=== PATIENT | female | born 1965 | race Caucasian/White ===

== ENCOUNTER 2018-07-15 02:19 | Outpatient (CLI) | payer BC, SELFPAY ==
[2018-07-15 07:40] LABS: HCT 41.9 % (36.0-46.0); HGB 13.8 g/dL (12.0-15.5); Mean Corp. HGB Concentration 32.9 g/dL (32.0-36.0); Mean Corpuscular Hemoglobin 32.6 pg (27.0-33.0); Mean Corpuscular Volume 99.1 fL (80-95); Mean Platelet Volume 9.7 fL (8.0-11.0); Platelet Count 250 x1000/uL (130-400); RBC 4.23 m/cumm (4.00-5.20); RBC Distribution Width 13.5 % (11.7-14.6); White Blood Cell Count 4.88 k/cumm (4.4-10.8)
[2018-07-15 08:00] LABS: Iron 111 ug/dL (50-175); Total Iron Binding Capacity 300 ug/dL (250-450); Transferrin Sat 37 % (15-50)
[2018-07-15 08:27] LABS: ALT 26 U/L (12-78); AST 18 U/L (15-37); Albumin 3.7 g/dL (3.4-5.0); Alkaline Phosphatase 75 U/L (46-116); Anion Gap 8.6 mmol/L (3-11); BUN 21 mg/dL (7-18); Bilirubin, Total 0.4 mg/dL (0.2-1.0); CO2 28.4 mmol/L (21.0-32.0); CREATININE 0.93 mg/dL (0.55-1.02); Calcium 8.8 mg/dL (8.5-10.1); Chloride 107 mmol/L (98-107); Ferritin 145 ng/mL (8-388); Glucose 85 mg/dL (70-100); Potassium 4.4 mmol/L (3.5-5.1); Sodium 144 mmol/L (136-145); TSH (W/Ref FT4) 2.84 uIU/mL (0.358-3.74); Total Protein 6.6 g/dL (6.4-8.2)
== END 2018-07-15 02:20 ==
PROVIDERS: PCP Emergency Medicine
DX: D64.9 Anemia, unspecified (principal); R53.83 Other fatigue
CPT/HCPCS: 36415; 80053; 85027; 82728; 83540; 83550; 84443

== ENCOUNTER 2018-07-28 16:47 | Outpatient (REF) | payer BC, SELFPAY ==
[2018-07-30 11:44] LABS: Campylobacter PCR SEE COMMENTS; Salmonella PCR SEE COMMENTS; Shiga Toxin PCR SEE COMMENTS; Shigella/Enteroinvasive Ecoli SEE COMMENTS
== END 2018-07-28 17:07 ==
LOC: LBN 16:47
PROVIDERS: PCP Emergency Medicine
DX: K59.00 Constipation, unspecified (principal); R19.7 Diarrhea, unspecified
CPT/HCPCS: 87329; 87505; 83630; 87177

== ENCOUNTER 2018-10-18 09:21 | Outpatient (CLI) | payer BC, SELFPAY ==
[2018-10-18 10:25] LABS: ESR 7 MM/HR (0-30)
[2018-10-18 11:09] LABS: C-Reactive Protein 0.05 mg/dL (0.0-0.3); Creatine Kinase 70 U/L (26-192)
[2018-10-18 11:30] LABS: Vitamin D 25 Total 41.6 ng/ml (30-100)
[2018-10-19 11:58] LABS: Rheumatoid Factor <8 IU/mL (<12.5)
[2018-10-19 14:52] LABS: ANA Interpretation Negative (NEGAT)
== END 2018-10-18 09:41 ==
PROVIDERS: PCP Emergency Medicine; Visit Provider Psychiatry & Neurology Neurology
DX: M25.50 Pain in unspecified joint (principal)
CPT/HCPCS: 36415; 82306; 82550; 85652; 86038; 86140; 86431

== ENCOUNTER 2018-10-25 01:09 | Outpatient (CLI) | payer BC, SELFPAY ==
--- NOTE | 2018-10-25 07:47 | DI.MRI_ITS ---
SYMPTOM/DIAGNOSIS: CHRONIC FATIGUE, ? MS G35.0 MRI BRAIN: Comparison is made with 19 Mar 2011. T2 sagittal, T1, T2, Flair, diffusion and gradient echo axial as well as flair sagittal sequences were performed. There are again noted to be a few scattered high signal foci in the white matter which is not in a periventricular location. The findings are nonspecific and may reflect microvascular disease. There has been no significant change from the previous exam. No mass, hemorrhage, or infarct is seen. The ventricles are normal in size. The vascular flow voids appear intact. The sinuses and mastoid air cells appear clear. The orbits and pituitary are unremarkable as visualized. IMPRESSION: Stable scattered white matter foci likely reflecting small vessel disease. There are no specific features of multiple sclerosis.
== END 2018-10-25 01:29 ==
PROVIDERS: PCP Emergency Medicine; Visit Provider Psychiatry & Neurology Neurology
DX: R53.82 Chronic fatigue, unspecified (principal); R90.82 White matter disease, unspecified
CPT/HCPCS: 70551

== ENCOUNTER 2019-02-03 12:23 | Outpatient (REF) | payer BC, SELFPAY ==
--- NOTE | 2019-02-03 10:30 | PAPFT_PTH ---
PATIENT: Negrita Cope LOC: [facility] U#:[id number] AGE/SX: 54/F ROOM: RE02/03/[address]: Brunilda Lainez APRN : 1965 BED: DIS: 02/03/2019 SPEC #: [id number] RECD: 02/03/19 18:11 STATUS: PAIGE REQ #: [id number] AIME: 02/03/19 10:[address]: Brunilda Lainez DEPT: [facility] Cytology RECD BY: Larissa Vásquez ENTERED: 02/03/19 18:12 SP TYPE: PAPFT OTHR DR: Lb Perez DO Tissues: 1 - CX/ENDOCX FOR PAP SMEARS Procedures: PAP THIN PREP/[facility] Screening HPV DNA PROBE Comments: [id number]
== END 2019-02-03 12:43 ==
LOC: LBN 12:23
PROVIDERS: PCP Emergency Medicine
DX: Z12.4 Encounter for screening for malignant neoplasm of cervix (principal); Z11.51 Encounter for screening for human papillomavirus (HPV)
CPT/HCPCS: 88142; 87624

== ENCOUNTER 2019-09-16 00:33 | Outpatient (CLI) | payer BC, SELFPAY ==
--- NOTE | 2019-09-16 13:00 | DI.MAMMO_ITS ---
EXAM: MG MAMMO SCREENING MG MAMMO SCREENING CLINICAL HISTORY: screening screening TECHNIQUE: Mammograms were interpreted according to the usual protocol including computer analysis w ith CAD system, tomosynthesis and C-view imaging. COMPARISON: 2009 through 2016 FINDINGS: The breasts are composed of scattered fibroglandular densities, Breast Density category B. No suspicious masses or suspicious microcalcifications are seen. No skin thickening or abnormal axillary lymph nodes are seen. There has been no significant change from prior exams. IMPRESSION: BIRADS Category 1, negative mammogram. Yearly screening mammography is recommended.
== END 2019-09-16 00:53 ==
PROVIDERS: PCP Emergency Medicine
DX: Z12.31 Encounter for screening mammogram for malignant neoplasm of breast (principal)
CPT/HCPCS: 77063; 77067

== ENCOUNTER 2020-08-24 02:26 | Outpatient (CLI) | payer BC, SELFPAY ==
[2020-08-27 09:29] LABS: Patient Race White; SARS-CoV-2 RNA Undetected (Undetected); SARS-CoV-2 Specimen Source Nasopharynx
== END 2020-08-24 02:46 ==
PROVIDERS: PCP Emergency Medicine; Visit Provider Emergency Medicine
DX: R05 Cough (principal)
CPT/HCPCS: U0003

== ENCOUNTER 2020-10-25 08:51 | Outpatient (CLI) | payer BC, SELFPAY ==
[2020-10-27 10:02] LABS: COVID-19 RT-PCR Result NEGATIVE (Negative)
== END 2020-10-25 09:11 ==
DX: Z11.59 Encounter for screening for other viral diseases (principal)
CPT/HCPCS: U0003

== ENCOUNTER 2020-11-30 01:43 | Outpatient (CLI) | payer BC, SELFPAY ==
[2020-11-30 10:51] LABS: ALT 25 U/L (14-59); AST 17 U/L (15-37); Alkaline Phosphatase 71 U/L (46-116); Anion Gap 6.5 mmol/L (3-11); BUN 23 mg/dL (7-18); Bilirubin, Total 0.5 mg/dL (0.2-1.0); CO2 30.5 mmol/L (21.0-32.0); CREATININE 1.04 mg/dL (0.55-1.02); Calcium 9.1 mg/dL (8.5-10.1); Calculated LDL 104 mg/dL (<100); Chloride 104 mmol/L (98-107); Cholesterol 216 mg/dL (<200); Estimated GFR 54.82 (mL/min/1.73m2); Glucose 92 mg/dL (74-106); HDL Cholesterol 98 mg/dL (40-60); Potassium 4.4 mmol/L (3.5-5.1); Sodium 141 mmol/L (136-145); Total Protein 7.2 g/dL (6.4-8.2); Triglyceride 74 mg/dL (<150)
== END 2020-11-30 02:03 ==
DX: Z00.00 Encounter for general adult medical examination without abnormal findings (principal); Z13.220 Encounter for screening for lipoid disorders
CPT/HCPCS: 36415; 80053; 80061

== ENCOUNTER 2020-11-30 04:31 | Outpatient (CLI) | payer BC, SELFPAY ==
--- NOTE | 2020-11-30 06:30 | DI.MAMMO_ITS ---
EXAM: MG MAMMO SCREENING CLINICAL HISTORY: screening,Z12.39. TECHNIQUE: Bilateral full field digital CC and MLO mammographic images were obtained with 3D tomosyn thesis and utilizing computer aided detection (CAD). COMPARISON: Prior mammograms dating back to 2011, the most recent being September 2019. FINDINGS: There are no spiculated masses nor malignant appearing microcalcification groups. There is no signif icant architectural distortion nor skin thickening-retraction. IMPRESSION: No radiographic evidence of malignancy. BI-RADS Category 1 - Negative Breast Density - Category B - Scattered areas of fibroglandular density Breast density Category C or D implies that the patient has dense breast tissue. Dense breast tissue can make it harder to find cancer on a mammogram. Dense breast tissue is also associated with an incr eased risk of breast cancer. This information about the result of the mammogram report was provided to the patient to raise their awareness. Use this report when you speak with the patient about their risks for breast cancer, which includes their family history. At that time, you may recommend additional screening tests (Ultrasoun d or MRI) as these tests may add significant information. A negative radiographic report should not delay biopsy if a dominant or clinically suspicious mass is present. Up to ten percent of cancers are not identified on mammography. A negative report may reinforce clinical impression. Adenosis and dense breasts may obscure an underlying neoplasm. False positive reports average 6 to 10%. Patient will receive a letter notifying them of these results.
== END 2020-11-30 04:51 ==
DX: Z12.31 Encounter for screening mammogram for malignant neoplasm of breast (principal)
CPT/HCPCS: 77063; 77067

== ENCOUNTER 2021-03-08 10:32 | Outpatient (CLI) | payer BC, SELFPAY ==
[2021-03-09 12:22] LABS: COVID-19 RT-PCR UVMMC Result Negative (Negative)
== END 2021-03-08 10:33 | disposition home or self-care (01) ==
LOC: LBO 10:33
DX: Z20.822 Contact with and (suspected) exposure to COVID-19 (principal)
CPT/HCPCS: U0003

== ENCOUNTER 2021-03-15 02:19 | Outpatient (CLI) | payer BC, SELFPAY ==
[2021-03-15 08:44] LABS: Anion Gap 8.6 mmol/L (3-11); BUN 23 mg/dL (7-18); CO2 29.4 mmol/L (21.0-32.0); Calcium 8.9 mg/dL (8.5-10.1); Chloride 108 mmol/L (98-107); Estimated GFR 57.15 (mL/min/1.73m2); Glucose 87 mg/dL (74-106); Potassium 4.7 mmol/L (3.5-5.1); Sodium 146 mmol/L (136-145)
== END 2021-03-15 02:20 | disposition home or self-care (01) ==
LOC: LBO 02:20
DX: R53.82 Chronic fatigue, unspecified (principal); Z87.448 Personal history of other diseases of urinary system
CPT/HCPCS: 36415; 80048

== ENCOUNTER 2021-11-27 10:51 | Outpatient (CLI) | payer BC, SELFPAY ==
--- NOTE | 2021-11-27 07:45 | DI.MRI_ITS ---
Exam(s) MR LUMBAR SPINE WO EXAM: MR LUMBAR SPINE WO CLINICAL HISTORY: BILAT leg weakness with back pain,R29.898. TECHNIQUE: Multiplanar multisequence MRI of the Lumbar spine was performed. COMPARISON: MR MRI - LUMBAR SPINE WO CONTRAST from 03/31/2017 FINDINGS: Five lumbar vertebrae are presumed. Conus medullaris is at normal level. There is no evidence of conus mass nor subjacent clumping of in trathecal nerve roots to suggest arachnoiditis. The distal thecal sac is again noted to be at S1 lev el..There is no evidence of Tarlov intrasacral cysts nor other significant findings within the sacral canal Bones:There are no fractures nor ominous osseous lesions in the lumbar vertebral bodies and visualize d sacrum. With respect to the individual levels... T12-L1: Unremarkable L1-2: Normal disc height and signal. No disc herniation nor central canal stenosis.No foraminal steno sis L2-3: Normal disc height. No disc herniation nor central canal stenosis.No foraminal stenosis.No face t arthropathy. L3-4: Normal disc height. No disc herniation or central canal stenosis.No foraminal stenosis.No face t arthropathy. L4-5: This level exhibits mild relatively uniform disc space narrowing but with relative preservation disc hydration signal. There is symmetrical annular bulging at this level evident resulting in mild central canal stenosis which is essentially unchanged from 2017. There is mild annular bulging at t he level of the exiting neural foramina but no evidence of significant foraminal stenosis on either s sulma. There are moderate degenerative changes in both facet joints again noted. Mild symmetrical lig amentum flavum hypertrophy bilaterally, also unchanged. L5-S1: This level again exhibits normal disc height and signal. No disc herniation. No central дмитрий l stenosis at this level. Also no foraminal stenosis nor significant facet arthropathy. Soft tissues: paraspinal soft tissues appear unremarkable. IMPRESSION: 1. Mild findings as described above, with minimal if any significant change compared to the prior MRI study of March 2017. 2. Mild central canal stenosis evident at L4-5 level which is basically unchanged and related to rela tively symmetrical annular bulging and short AP dimensions the pedicles and some degenerative change in both facet joints this level. Findings at this level are essentially unchanged from March 2017. 3. No significant osseous lesions. DATA REPOSITORY:
== END 2021-11-27 11:11 ==
PROVIDERS: Visit Provider Emergency Medicine
DX: R29.898 Other symptoms and signs involving the musculoskeletal system (principal); M48.061 Spinal stenosis, lumbar region without neurogenic claudication
CPT/HCPCS: 72148

== ENCOUNTER → 2022-10-14 12:55 | Outpatient (CLI) | payer BC, SELFPAY ==
--- NOTE | 2022-10-14 10:15 | DI.RAD_ITS ---
Exam(s) XR SACRUM COCCYX EXAM: XR SACRUM COCCYX CLINICAL HISTORY: fall, back pain,w19.xxxa. TECHNIQUE: 2D digital imaging was performed. Three images were obtained. COMPARISON: No exams were available for comparison FINDINGS: BONES: No acute fracture is present. No bony destructive lesion is seen. JOINTS: No dislocation present. SOFT TISSUE: Normal. IMPRESSION: No acute fracture is identified. DATA REPOSITORY: RADIATION DOSE DELIVERED:
--- NOTE | 2022-10-14 10:15 | DI.RAD_ITS ---
Exam(s) XR LUMBAR SPINE COMPLETE EXAM: XR LUMBAR SPINE COMPLETE CLINICAL HISTORY: fall, back pain,w19.xxxa. TECHNIQUE: 2D digital imaging was performed of the lumbar spine. Five images were obtained. AP, la teral, right oblique, left oblique and L5-S1 spot views were obtained. COMPARISON: No exams were available for comparison FINDINGS: BONES: No fracture or destructive lesion. Small endplate osteophytes are seen at L4-L5. Degenerative changes of the facets at L5-S1 are noted. DISKS: Mild disc space narrowing is seen at L4-L5. ALIGNMENT: Lumbar spinal alignment is within normal limits. No spondylolysis or spondylolisthesis. SOFT TISSUE: Normal. IMPRESSION: 1. No acute fracture or subluxation. 2. Mild degenerative changes in the lumbar spine. DATA REPOSITORY: RADIATION DOSE DELIVERED:
--- NOTE | 2022-10-14 10:15 | DI.RAD_ITS ---
Exam(s) XR RIBS BI INCLUDE CHEST EXAM: XR RIBS BI INCLUDE CHEST CLINICAL HISTORY: fall, rib pain, anterior bilateral,w19.xxxa TECHNIQUE: 2D digital imaging was performed. Ten images were obtained. COMPARISON: No exams were available for comparison FINDINGS: MEDIASTINUM: Surgical clips are seen in the superior mediastinum. HEART: Normal. PULMONARY VASCULATURE: Normal. LUNGS: Clear. PLEURAL SPACE: No pleural effusion or pneumothorax. BONE:Within normal limits for the patient's age. ACDF in the lower cervical spine is noted. BILATERAL RIBS: Normal. OTHER FINDINGS:Normal. IMPRESSION: 1. No acute pulmonary findings. 2. Unremarkable ribs. DATA REPOSITORY: RADIATION DOSE DELIVERED:
--- NOTE | 2022-10-14 10:15 | DI.RAD_ITS ---
Exam(s) XR THORACIC SPINE COMPLETE EXAM: XR THORACIC SPINE COMPLETE CLINICAL HISTORY: fall, back pain,w19.xxxa. TECHNIQUE: 2D digital imaging was performed of the thoracic spine. Three views were obtained. AP, swimmer's and lateral views were obtained. COMPARISON: No exams were available for comparison FINDINGS: BONES: There is no fracture or destructive lesion. Mild spurring of the endplates in the thoracic spi ne. DISKS:Alignment is within normal limits. Interverebral disc spaces are maintained. There is ACDF in t he lower cervical spine. SOFT TISSUE: Visualized lungs are clear. IMPRESSION: 1. No acute fracture or subluxation in the thoracic spine. 2. Mild degenerative changes in the thoracic spine. DATA REPOSITORY: RADIATION DOSE DELIVERED:
== END ==
PROVIDERS: PCP Nurse Practitioner Family; Visit Provider Physician Assistant
DX: W19.XXXA Unspecified fall, initial encounter (principal); M47.814 Spondylosis without myelopathy or radiculopathy, thoracic region; M47.816 Spondylosis without myelopathy or radiculopathy, lumbar region
CPT/HCPCS: 71046; 71110; 72072; 72110; 72220

== ENCOUNTER 2022-11-02 15:19 | Emergency (ER) | payer BC, SELFPAY ==
[2022-11-02 15:32] VITALS: BP 122/74; PULSE 74; RESP 20; TEMP 36.7; O2SAT 97
--- NOTE | 2022-11-02 16:15 | DI.RAD_ITS ---
Exam(s) XR CHEST 2V PA LATERAL EXAM: XR CHEST 2V PA LATERAL CLINICAL HISTORY: cough TECHNIQUE: 2D digital imaging was performed. COMPARISON: CR XR RIBS BI INCLUDE CHEST from 10/14/2022 FINDINGS: HEART: Normal size. Aorta: Not dilated. PULMONARY VASCULATURE: Normal. LUNGS: Clear. Surgical clips are again noted on both sides of the upper thoracic spine. PLEURAL SPACE: No pleural effusion or pneumothorax. BONE:Unremarkable for age. IMPRESSION: No acute abnormality. DATA REPOSITORY: RADIATION DOSE DELIVERED:
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
--- NOTE | 2022-11-02 16:59 | DI.VRAD_ITS ---
PROCEDURE INFORMATION: Exam: XR Chest Exam date and time: 11/02/2022 4:35 PM Age: 57 years old Clinical indication: Cough TECHNIQUE: Imaging protocol: Radiologic exam of the chest. Views: 2 views. COMPARISON: CR XR RIBS BI INCLUDE CHEST 10/14/2022 10:40 AM FINDINGS: Lungs: Unremarkable. No consolidation. Pleural spaces: Unremarkable. No pleural effusion. No pneumothorax. Heart/Mediastinum: Unremarkable. No cardiomegaly. Bones/joints: Status post lower cervical fusion. IMPRESSION: No evidence for acute abnormality. Dictated and Authenticated by: Cielo Limon MD. Ordering:HERMINIA Sorensen MD
[2022-11-02] MEDS: Albuterol HFA 8 GM 60 PUFF INH IH (17:17)
[2022-11-02] MEDS: Benzonatate 100 MG CAP (17:17)
[2022-11-02] MEDS: Inhaler, Assist Device 1 EACH MC (17:17)
== END 2022-11-02 17:21 | disposition home or self-care (01) ==
PROVIDERS: Emergency Provider Nurse Practitioner Family; PCP Nurse Practitioner Family
DX: J40 Bronchitis, not specified as acute or chronic (principal); Z20.822 Contact with and (suspected) exposure to COVID-19
CPT/HCPCS: 94640; 99283; 71046; 99284

== ENCOUNTER 2023-01-21 18:25 | Outpatient (CLI) | payer OTHER, SELFPAY ==
--- NOTE | 2023-01-21 18:45 | DI.RAD_ITS ---
Exam(s) XR THORACIC SPINE COMPLETE EXAM: XR THORACIC SPINE COMPLETE CLINICAL HISTORY: vertebral alignment. TECHNIQUE: 2D digital imaging was performed. Three views. COMPARISON: CR XR THORACIC SPINE COMPLETE from 10/14/2022 FINDINGS: BONES: There is no fracture or destructive lesion. The vertebral bodies and posterior elements are un remarkable. Hardware is noted in the lower cervical region. ALIGNMENT: Within normal limits. DISKS: Interverebral disc spaces are maintained. SOFT TISSUE: Visualized lungs are clear. The heart size is normal. Surgical clips are noted adjace nt to the upper thoracic spine. IMPRESSION: Unremarkable radiographs of the thoracic spine. DATA REPOSITORY: RADIATION DOSE DELIVERED:
--- NOTE | 2023-01-21 18:45 | DI.RAD_ITS ---
Exam(s) XR KNEE LT 4V AP,LAT,TREMAYNE,PAT EXAM: XR KNEE LT 4V AP,LAT,TREMAYNE,PAT CLINICAL HISTORY: evaluate pathology. TECHNIQUE: 2D digital imaging was performed. Three views. COMPARISON: CR LEFT KNEE 3 VIEW COMPLETE from 04/08/2017 MR MRI L LOWER JOINT WO CONT from 04/15/2017 FINDINGS: BONES: There is a faint lucency seen at the lower pole of the patella which could represent a subacut e nondisplaced fracture. Clinical correlation recommended as to area of patient pain.. No bony dest ructive lesion is seen. JOINTS: The knee is normally aligned. A small joint effusion is seen. SOFT TISSUE: Soft tissue swelling anterior to the lower pole of the patella. IMPRESSION: Findings suspicious for a subacute nondisplaced fracture at the inferior pole of the patella. Clini albino correlation recommended. DATA REPOSITORY: RADIATION DOSE DELIVERED:
--- NOTE | 2023-01-21 18:45 | DI.RAD_ITS ---
Exam(s) XR ANKLE LT COMPLETE EXAM: XR ANKLE LT COMPLETE CLINICAL HISTORY: evaluate pathology TECHNIQUE: 2D digital imaging was performed. Three views. COMPARISON: No exams were available for comparison FINDINGS: BONES: No acute fracture is present. No bony destructive lesion is seen. JOINTS:The ankle mortise is normally aligned. SOFT TISSUE: Normal. IMPRESSION: Unremarkable radiographs of the left ankle. DATA REPOSITORY: RADIATION DOSE DELIVERED:
--- NOTE | 2023-01-21 18:45 | DI.RAD_ITS ---
Exam(s) XR CERVICAL SPINE COMP 4-5V EXAM: XR CERVICAL SPINE COMP 4-5V CLINICAL HISTORY: evaluate fx. TECHNIQUE: 2D digital imaging was performed. COMPARISON: No exams were available for comparison FINDINGS: Patient has anterior fusion at C5-6. There is mild to moderate narrowing of the C4-5 disc space and anterior plate osteophytes projecting mainly anteriorly. The remaining disc spaces are maintained. The left neural foramen are suboptimally profiled. Narrowing is not excluded. The alignment is norm al. Soft tissues are unremarkable. IMPRESSION: Postsurgical changes at C5-6. Degenerative changes at C4-5. DATA REPOSITORY: RADIATION DOSE DELIVERED:
--- NOTE | 2023-01-21 18:45 | DI.RAD_ITS ---
Exam(s) XR LUMBAR SPINE COMPLETE EXAM: XR LUMBAR SPINE COMPLETE CLINICAL HISTORY: evaluate vertebrae alignment. TECHNIQUE: 2D digital imaging was performed. Five views. COMPARISON: CR XR LUMBAR SPINE COMPLETE from 10/14/2022 FINDINGS: BONES: No fracture or destructive lesion. Vertebral body heights are maintained. Moderate facet hype rtrophy identified at L4-5. DISKS: Model narrowing of the L4-5 disc space. The remaining intervertebral disc spaces are maintain ed. ALIGNMENT: Lumbar spinal alignment is within normal limits. SOFT TISSUE: Large quantity of stool. IMPRESSION: Degenerative changes at L4-5. DATA REPOSITORY: RADIATION DOSE DELIVERED:
--- NOTE | 2023-01-21 19:21 | DI.VRAD_ITS ---
PROCEDURE INFORMATION: Exam: XR Spine; Cervical Exam date and time: 01/21/2023 19:03 Age: 57 years old Clinical indication: Symptoms: Evaluate FX TECHNIQUE: Imaging protocol: XR of the spine. Exam focused on the cervical spine. Views: 1 view. COMPARISON: CR CERV SP WITH OBL FLEX/EXT 06/26/2016 09:58 FINDINGS: Bones/joints: Straightening of the normal cervical lordosis. Anterior fixation and disc spacer at C5-C6 in anatomic alignment with satisfactory appearance of the hardware. Disc space narrowing again seen at C4-C5. No displaced fracture. No listhesis. Soft tissues: Normal. IMPRESSION: Anterior fixation and disc spacer at C5-C6 in anatomic alignment with satisfactory appearance of the hardware. Dictated and Authenticated by: Malu Pizarro MD. Ordering:MARIBEL Carrasco MD
--- NOTE | 2023-01-21 19:22 | DI.VRAD_ITS ---
PROCEDURE INFORMATION: Exam: XR Left Knee Exam date and time: 01/21/2023 19:08 Age: 57 years old Clinical indication: Other: Eval pathology TECHNIQUE: Imaging protocol: Radiologic exam of the left knee. Views: 4 or more views. COMPARISON: MRI L LOWER JOINT WO CONT 04/15/2017 17:27 FINDINGS: Bones/joints: No acute fracture or subluxation. Sliver of joint fluid. Soft tissues: Unremarkable. IMPRESSION: 1. No acute bony pathology. 2. Sliver of joint fluid. Dictated and Authenticated by: Malu Pizarro MD. Ordering:MARIBEL Carrasco MD
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
== END 2023-01-21 18:45 ==
PROVIDERS: PCP Nurse Practitioner Family; Visit Provider Nurse Practitioner Family
DX: M47.812 Spondylosis without myelopathy or radiculopathy, cervical region (principal); M47.816 Spondylosis without myelopathy or radiculopathy, lumbar region; S12.9XXA Fracture of neck, unspecified, initial encounter; W19.XXXA Unspecified fall, initial encounter
CPT/HCPCS: 72050; 72072; 72110; 73564; 73610

== ENCOUNTER 2023-02-02 02:29 | Outpatient (CLI) | payer BC, SELFPAY | END 2023-02-02 02:49 | LOC: DI 02:29 | PROVIDERS: PCP Nurse Practitioner Family; Visit Provider Nurse Practitioner Family | DX: Z12.31 Encounter for screening mammogram for malignant neoplasm of breast (principal) | CPT/HCPCS: 77063; 77067 ==

== ENCOUNTER 2023-02-12 11:47 | Outpatient (CLI) | payer OTHER, SELFPAY ==
--- NOTE | 2023-02-12 07:45 | DI.RAD_ITS ---
Exam(s) XR KNEE LT 2V AP,LAT EXAM: XR KNEE LT 2V AP,LAT INDICATION: Left knee pain. COMPARISON: CR,XR XR KNEE LT 4V AP,LAT,TREMAYNE,PAT from 01/21/2023 TECHNIQUE: 2D digital imaging was performed. Two views. FINDINGS: There has been no change in the alignment of the nondisplaced fracture at the lower pole of the call la. No new abnormalities. DATA REPOSITORY: RADIATION DOSE DELIVERED:
== END 2023-02-12 11:48 | disposition home or self-care (01) ==
LOC: DIORS 11:47
PROVIDERS: PCP Nurse Practitioner Family; Referring Provider Nurse Practitioner Family; Visit Provider Physician Assistant
DX: M25.562 Pain in left knee (principal); S82.092D Other fracture of left patella, subsequent encounter for closed fracture with routine healing; X58.XXXD Exposure to other specified factors, subsequent encounter
CPT/HCPCS: 73560

== ENCOUNTER 2023-02-24 01:51 | Outpatient (CLI) | payer BC, SELFPAY ==
[2023-02-24 08:00] LABS: BUN 18 mg/dL (7-18); Chloride 108 mmol/L (98-107); Glucose 98 mg/dL (74-106); Potassium 3.8 mmol/L (3.5-5.1); Sodium 141 mmol/L (136-145)
== END 2023-02-24 01:52 | disposition home or self-care (01) ==
PROVIDERS: PCP Nurse Practitioner Family; Visit Provider Nurse Practitioner Family
DX: Z13.1 Encounter for screening for diabetes mellitus (principal)
CPT/HCPCS: 36415; 80048

== ENCOUNTER 2023-03-16 10:08 | Outpatient (CLI) | payer OTHER, SELFPAY ==
--- NOTE | 2023-03-16 08:00 | DI.RAD_ITS ---
Exam(s) XR KNEE LT 2V AP,LAT EXAM: XR KNEE LT 2V AP,LAT CLINICAL HISTORY: f/u fx. TECHNIQUE: 2D digital imaging was performed of the left knee. Two images were obtained. AP and lat eral views were obtained. COMPARISON: CR,XR XR KNEE LT 4V AP,LAT,TREMAYNE,PAT from 01/21/2023 CR XR KNEE LT 2V AP,LAT from 02/12/2023 FINDINGS: BONES: The lower pole fracture of the patella is unchanged. The fracture line is less well visualiz ed. A CT scan of the knee may be considered to assess for degree of healing. No bony destructive le joelle is seen. JOINTS: The knee is normally aligned. No joint effusion is seen. SOFT TISSUE: Normal. IMPRESSION: Stable patella. Please see the above discussion for complete details. DATA REPOSITORY: RADIATION DOSE DELIVERED:
== END 2023-03-16 10:09 | disposition home or self-care (01) ==
LOC: DIORS 10:08
PROVIDERS: PCP Nurse Practitioner Family; Visit Provider Physician Assistant
DX: S82.002A Unspecified fracture of left patella, initial encounter for closed fracture (principal)
CPT/HCPCS: 73560

== ENCOUNTER 2023-04-27 09:08 | Outpatient (CLI) | payer OTHER, SELFPAY ==
--- NOTE | 2023-04-27 09:43 | DI.RAD_ITS ---
Exam(s) XR KNEE LT 2V AP,LAT EXAM: XR KNEE LT 2V AP,LAT CLINICAL HISTORY: F/U FRACTURE. TECHNIQUE: 2D digital imaging was performed. COMPARISON: CR XR KNEE LT 2V AP,LAT from 02/12/2023 CR XR KNEE LT 2V AP,LAT from 03/16/2023 FINDINGS: Two views. No evidence of acute fracture nor prominent joint effusion. No joint space narrowing. No osteophyte s. Respect to the patella, inferior pole fracture line is barely. IMPRESSION: Further healing inferior pole patellar fracture. DATA REPOSITORY: RADIATION DOSE DELIVERED:
== END 2023-04-27 09:09 | disposition home or self-care (01) ==
LOC: DIORS 09:08
PROVIDERS: PCP Nurse Practitioner Family; Referring Provider Nurse Practitioner Family; Visit Provider Physician Assistant
DX: S82.092D Other fracture of left patella, subsequent encounter for closed fracture with routine healing (principal); Z47.89 Encounter for other orthopedic aftercare; X58.XXXD Exposure to other specified factors, subsequent encounter
CPT/HCPCS: 73560

== ENCOUNTER 2023-08-17 06:08 | Day surgery (SDC) | payer BC, SELFPAY ==
--- NOTE | 2023-08-16 20:41 | W.PM.DSUDISC ---
Date of service: 08/17/23 Time of Service: 08:13 Discharge Plan Disposition Patient Disposition: Home Condition: Good Discharge Details Reason For Visit: screening colonoscopy Attending Provider: Paolo Cavazos Primary Care Provider: Charli Bueno Home Meds and New Rx's Prescriptions: Continued turmeric root extract 500 mg capsule 500 mg PO DAILY cholecalciferol (vitamin D3) 25 mcg (1,000 unit) capsule 25 mcg PO DAILY gabapentin 300 mg capsule 300 mg PO HS Qty: 90 4RF Adult 50 Plus Probiotic 4 billion cell capsule 4,000 mmu cells PO BID Rx Instructions: administer with a meal Discontinued polyethylene glycol 3350 17 gram/dose powder 238 g PO ONCE Qty: 238 0RF Rx Instructions: take per colonoscopy instructions bisacodyl [Dulcolax (bisacodyl)] 5 mg tablet,delayed release (DR/EC) 5 mg PO ONCE Qty: 4 0RF Rx Instructions: take per colonoscopy instructions Discharge Instructions Instructions: Colorectal Polyps (GEN) Additional Instructions: Negrita, we were able to finish your colonoscopy today without any difficulty. I did find a total of 3 polyps. All were quite small. None of them looked worrisome. I removed them all completely. We will take a week or 2 to get the results of the polyp report, but once I have that I will be in touch with my recommendations for your next colonoscopy. 1. If tolerated, consume a soft, low fiber diet for 1-2 days. 2[address] Do not drive, drink alcohol, operate machinery, make critical decisions, or do activities that require coordination or balance for 24 hours. 3. Because air was put into your colon during the procedure, expelling air from your rectum (passing gas or farting) is normal. 4. You may not have a bowel movement for 1-3 days because of the colonoscopy prep. This is normal. 5. Go directly to the emergency room if you notice any of the following: Develop chills (warm to touch), or if you have a thermometer and your temperature is above 101 Difficulty breathing or difficultly swallowing Persistent vomiting Severe abdominal pain, other than gas cramps Severe chest pain Black, tarry stools Any bleeding ? exceeding one tablespoon 6. Call your physician if the site where your intravenous was started becomes red, swollen, painful, and warm to touch. 7. Your physician has reviewed your pre-procedure medications. Please continue to take those medications as previously ordered. You will be given specific information/education regarding any changes to your medications before leaving. Stand Alone Forms: Anesthesia Discharge Inst., Colonoscopy Post Instructions, Nicholas Salas (DSU) Activity:: Activity as Tolerated Diet:: As Tolerated Discharge Orders Discharge Orders: Discharge Order (Routine); Ordered 08/16/23 Ordered By: Paolo Cavazos DS: Diagnosis Discharge Diagnosis (1) Screening for colorectal cancer: Status: Acute
--- NOTE | 2023-08-16 20:43 | W.COLOREPORT ---
Date of service: 08/17/23 Time of Service: 08:14 Colonoscopy Report Date of procedure: 08/17/23 Pre-op diagnosis general: screening colonoscopy Post-op diagnosis procedure note: other (Diverticulosis, colon polyps) Procedure: colonoscopy Surgeon: Paolo Cavazos Anesthesia Type: General:No Airway Estimated blood loss (mL): 5 Pathology: other (Cecal polyps x2, colon polyp at 45 cm) Complications: None Disposition: same day Indications: Negrita is 58 years old. She has a first degree relative with colon cancer and she needs a screening colonoscopy Prep: Miralax/Dulcolax Procedure Start Time: 07:34 Procedure End Time: 08:03 Retraction Time: 14 Findings: Mild sigmoid diverticulosis; 0.25 cm cecal polyps x2, 0.25 cm polyp at 45 cm Procedure Description: After the induction of monitored anesthetic care, and with the patient in left lateral decubitus position, I began by performing an external anorectal exam.? Perineum and skin were normal, as was the anal verge.? There was no evidence of external hemorrhoids.? Next, I performed a digital rectal exam.? I did not appreciate any abnormal findings.? Next, I advanced a colonoscope into the rectal vault.? I performed retroflexion.? This appeared normal.? Using insufflation, I then advanced the colonoscope beyond the rectal folds and into the sigmoid colon before advancing towards the cecum.? The quality of the prep was excellent.? There were occasional sigmoid diverticula. The scope was noted to be in the cecum by identification of the ileocecal valve and appendiceal orifice.? I then began withdrawing the colonoscope using repeated irrigation as necessary for full evaluation of the colonic mucosa. Just within the cecum were 2 cecal polyps. Both were less than 0.25 cm. Both were sessile. I removed both of these with cold forcep polypectomy and there was minimal bleeding. Around 45 cm from the anal verge I identified another 0.25 cm polyp. ?It appeared sessile in character. ?I was able to remove this with a cold forceps. ?I examined the site, and there was minimal bleeding. ?Once this was completed, I continued to withdraw the scope and examine the remainder of the colonic mucosa. Once the scope was withdrawn to the level of the rectum, great care was taken to examine portions of the rectal folds.? Finally, the scope was withdrawn and the patient was brought to the same-day surgery recovery unit as the anesthetic wore off. ?The findings and instructions were shared with the patient prior to discharge.
[2023-08-17 06:15] VITALS: BP 136/86; PULSE 74; RESP 18; TEMP 36.3; O2SAT 98
[2023-08-17] MEDS: Lactated Ringers 1,000 ML 80 ML IV (06:34)
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
[2023-08-17 06:55] VITALS: BMI 26.4
--- NOTE | 2023-08-17 07:51 | BOWEL_PTH ---
PATIENT: Negrita Cope LOC: [facility] U#:[id number] AGE/SX: 58/F ROOM: RE08/17/[address]: Paolo Cavazos MD : 1965 BED: DIS: 08/17/2023 SPEC #: [id number] RECD: 08/17/23 11:18 STATUS: PAIGE RE #: [id number] AIME: 08/17/23 07:[address]: Paolo Cavazos DEPT: Surgical Specimen RECD BY: Larissa Vásquez ENTERED: 08/17/23 11:18 SP TYPE: Bowel OTHR DR: Charli Bermudez DNP Tissues: 1 - BIOPSY BOWEL 2 - BIOPSY BOWEL Procedures: GROSS AND MICRO LEVEL 4 Comments: [id number]
[2023-08-17 08:09] VITALS: BP 105/70; PULSE 71; RESP 16; TEMP 36.3; O2SAT 99
[2023-08-17 08:40] VITALS: BP 139/78; PULSE 64; RESP 18; TEMP 36.3; O2SAT 99
--- NOTE | 2023-08-17 08:53 | W.ANESPOSTOP ---
Postoperative Evaluation Date, Time and Location Date Performed: 08/17/23 Time Performed: 08:25 Patient Location: Day Surgery Unit Vital Signs Most Recent Imported Vital Signs: Most Recent Vital Signs Temp Pulse Resp BP Pulse Ox 36.3 C L 64 18 139/78 99 08/17/23 08:40 08/17/23 08:40 08/17/23 08:40 08/17/23 08:40 08/17/23 08:40 Pain Score Most Recent Pain Score: Most Recent Pain Score Pain Level 0 08/17/23 08:40 Assessment Mental Status: Awake (Alert & Oriented to Patient Baseline) Airway and Respiratory Function: Patent airway with normal (patient baseline) respiratory exam Cardiovascular Function: Hemodynamically Stable Hydration Status: Adequately Hydrated Nausea & Vomiting: No Nausea or Vomiting Pain: Pt. Denies Any Pain Peripheral Nerve Block: Patient did not receive a nerve block
== END 2023-08-17 09:09 | disposition home or self-care (01) ==
PROVIDERS: PCP Nurse Practitioner Family; Visit Provider Surgery
PROC: 0DJD8ZZ Inspection of Lower Intestinal Tract, Via Natural or Artificial Opening Endoscopic (ICD-10-PCS; CPT 45378; principal; 2023-08-17 07:30)
DX: Z12.11 Encounter for screening for malignant neoplasm of colon (principal); Z80.0 Family history of malignant neoplasm of digestive organs; D12.5 Benign neoplasm of sigmoid colon; K57.30 Diverticulosis of large intestine without perforation or abscess without bleeding; D12.0 Benign neoplasm of cecum
CPT/HCPCS: 45380; 88305

== ENCOUNTER 2023-08-28 09:03 | Outpatient (CLI) | payer OTHER, SELFPAY ==
--- NOTE | 2023-08-28 08:30 | DI.RAD_ITS ---
Exam(s) XR KNEES MERCHANT ONLY EXAM: XR KNEES MERCHANT ONLY INDICATION: LEFT PATELLA FX. COMPARISON: CR LEFT KNEE 3 VIEW COMPLETE from 04/08/2017 CR XR KNEE LT 2V AP,LAT from 02/12/2023 CR XR KNEE LT 2V AP,LAT from 03/16/2023 CR XR KNEE LT 2V AP,LAT from 04/27/2023 TECHNIQUE: 2D digital imaging was performed. Merchant view only FINDINGS: No fracture is visible on this view. Metallic femoral joint space is maintained. There is mild per iarticular spurring. DATA REPOSITORY: RADIATION DOSE DELIVERED:
== END 2023-08-28 09:04 | disposition home or self-care (01) ==
LOC: DIORS 09:03
PROVIDERS: PCP Nurse Practitioner Family; Referring Provider Family Medicine; Visit Provider Student in an Organized Health Care Education/Training Program
DX: S82.002A Unspecified fracture of left patella, initial encounter for closed fracture (principal); X58.XXXA Exposure to other specified factors, initial encounter
CPT/HCPCS: 73565

== ENCOUNTER → 2024-04-14 03:33 | Outpatient (CLI) | payer OTHER, BC, SELFPAY ==
--- NOTE | 2024-04-14 08:15 | DI.MRI_ITS ---
Exam(s) MR CERVICAL SPINE WO EXAM: MR CERVICAL SPINE WO CLINICAL HISTORY: chronic neck pain, hx of cervical surgery, degenerative joint disease, TECHNIQUE: Multiplanar multisequence MRI of the cervical spine was performed without intravenous con trast. COMPARISON: MR MRI - CERVICAL SPINE W/WO from 02/22/2013 FINDINGS: BONES: Anterior osteophytes seen at C4-5. intervertebral disc spaces are normal. Alignment is normal. Degenerative endplate signal changes at C4-C5. Anterior cervical disc fusion at C5-6. CERVICAL CORD: Craniovertebral junction is unremarkable. The cervical cord is normal size and signal intensity. SOFT TISSUES: Unremarkable. C2-3: No disc herniation or bulge is identified. No significant central spinal canal or neural forami nal stenosis. C3-4: No disc herniation or bulge is identified. No significant central spinal canal or neural forami nal stenosis C4-5: Prominence of the osteophyte disc complex at C4-C5. There is no significant central spinal дмитрий l stenosis. There is mild bilateral neural foraminal stenosis. C5-6: No disc herniation or bulge is identified. No significant central spinal canal or neural forami nal stenosis C6-7: No disc herniation or bulge is identified. No significant central spinal canal or neural forami nal stenosis C7-T1: No disc herniation or bulge is identified. No significant central spinal canal or neural verenice inal stenosis IMPRESSION: 1. C5-C6 anterior cervical disc fusion. 2. Degenerative changes at C4-C5 resulting in mild bilateral neural foraminal stenosis. DATA REPOSITORY:
--- NOTE | 2024-04-14 08:15 | DI.MRI_ITS ---
Exam(s) MR LUMBAR SPINE WO EXAM: MR LUMBAR SPINE WO CLINICAL HISTORY: chronic low back pain, degenerative joint disease, spondylosis w/o. TECHNIQUE: Multiplanar multisequence MRI of the Lumbar spine was performed. COMPARISON: MR MR LUMBAR SPINE WO from 11/27/2021 FINDINGS: Bones: The last intervertebral disc space is designated the L5/S1 level for the numbering purpose of this examination. The vertebral body heights are well maintained. Alignment is satisfactory. Degene rative endplate signal changes are seen in the lumbar spine particularly at L4-L5. Cord: The conus tip ends at the T12 level. It is of normal size and signal intensity. T12-L1: No disc herniations or bulges are present. No central spinal canal or neural foraminal stenos is. L1-2: No disc herniations or bulges are present. No central spinal canal or neural foraminal stenosis . L2-3: No disc herniations or bulges are present. No central spinal canal or neural foraminal stenosis . L3-4: No disc herniations or bulges are present. No central spinal canal or neural foraminal stenosis . L4-5: There is a diffuse disc bulge. There are degenerative changes of the facets. The findings res ult in [id number] central spinal canal stenosis. There is mild bilateral neural foraminal sten osis. L5-S1: No disc herniations or bulges are present. No central spinal canal or neural foraminal stenosi s.There are degenerative changes of the facets. Soft tissues: The visualized SI joints and sacrum are well maintained. The paraspinal soft tissues ar e unremarkable. IMPRESSION: Degenerative changes at L4-5 resulting in [id number] central spinal canal stenosis and mild henny ateral neural foraminal stenosis. DATA REPOSITORY:
== END ==
PROVIDERS: PCP Nurse Practitioner Family; Visit Provider Nurse Practitioner Family
DX: M47.816 Spondylosis without myelopathy or radiculopathy, lumbar region (principal); M47.812 Spondylosis without myelopathy or radiculopathy, cervical region
CPT/HCPCS: 72141; 72148

== ENCOUNTER 2024-06-08 13:28 | Outpatient (REF) | payer BC, SELFPAY ==
--- NOTE | 2024-06-08 09:20 | PAPFT_PTH ---
PATIENT: Negrita Cope LOC: [facility] U#:[id number] AGE/SX: 59/F ROOM: RE06/08/[address]: Charli Bermudez DNP : 1965 BED: DIS: 06/08/2024 SPEC #: [id number] RECD: 06/08/24 13:32 STATUS: PAIGE RESully #: [id number] AIME: 06/08/24 09:[address]: Charli Bueno DEPT: [facility] Cytology RECD BY: Larissa Vásquez Tissues: 1 - CX/ENDOCX FOR PAP SMEARS Procedures: PAP THIN PREP/[facility] Screening HPV DNA PROBE Comments: [id number] (HPV 16 & 18/45)
== END 2024-06-08 13:29 | disposition home or self-care (01) ==
LOC: LBN 13:28
PROVIDERS: PCP Nurse Practitioner Family; Visit Provider Nurse Practitioner Family
DX: M25.561 Pain in right knee (principal); Z00.00 Encounter for general adult medical examination without abnormal findings
CPT/HCPCS: 88142; 87624

== ENCOUNTER → 2024-06-14 02:43 | Outpatient (CLI) | payer BC, SELFPAY ==
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
== END ==
PROVIDERS: PCP Nurse Practitioner Family; Visit Provider Nurse Practitioner Family
DX: M25.561 Pain in right knee (principal); M17.11 Unilateral primary osteoarthritis, right knee
CPT/HCPCS: 73562

== ENCOUNTER 2024-07-21 02:44 | Outpatient (CLI) | payer BC, SELFPAY ==
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
--- NOTE | 2024-07-21 07:15 | DI.MAMMO_ITS ---
Exam(s) MAMMO SCREENING EXAM: MAMMO SCREENING CLINICAL HISTORY: screening,z12.39 TECHNIQUE: Bilateral full field digital CC and MLO mammographic images were obtained with 3D tomosyn thesis and utilizing computer aided detection (CAD). COMPARISON: Available for comparison. FINDINGS: Masses/Architectural Distortion: None seen. Microcalcifications: No suspicious pleomorphic-type are seen. Skin Thickening/Nipple Retraction: None. IMPRESSION: 1. No significant interval change with no specific features of malignancy noted. 2. Unless there is more urgent need, screening mammography is recommended, as per [employer] guidelines. BI-RADS Category 1 - Negative Breast Density - Category B - Scattered areas of fibroglandular density Breast density category C or D implies that the patient has dense breast tissue. Dense breast tissue is very common and is not abnormal but dense breast tissue can make it harder to find cancer on a ma mmogram. Also, dense breast tissue may increase their breast cancer risk. This information about the result of the mammogram report was provided to the patient to raise their awareness. Use this report when you speak with the patient about their risks for breast cancer, which includes their family hist ory. At that time, you may recommend for more screening tests (Ultrasound or MRI) as they might be us eful based on their risk. A negative radiographic report should not delay biopsy if a dominant or clinically suspicious mass is present. Up to ten percent of cancers are not identified on mammography. A negative report may reinforce clinical impression. Adenosis and dense breasts may obscure an underlying neoplasm. False positive reports average 6 to 10%. Patient will receive a letter notifying them of these results.
== END 2024-07-21 03:04 ==
LOC: DI 02:44
PROVIDERS: PCP Nurse Practitioner Family; Visit Provider Nurse Practitioner Family
DX: Z12.31 Encounter for screening mammogram for malignant neoplasm of breast (principal); Z78.0 Asymptomatic menopausal state; M85.89 Other specified disorders of bone density and structure, multiple sites; Z13.820 Encounter for screening for osteoporosis
CPT/HCPCS: 77063; 77067; 77080

== ENCOUNTER 2024-08-19 15:40 | Outpatient (REF) | payer BC, SELFPAY ==
[2024-08-19 21:46] LABS: Abs Immature Grans 0.02 10^3/uL (0.0-0.06); Absolute Basophil Count 0.08 10^3/uL (0.0-0.2); Absolute Eosinophil Count 0.14 10^3/uL (0.0-0.7); Absolute Lymphocyte Count 2.11 10^3/uL (1.2-3.4); Absolute Monocyte Count 0.53 10^3/uL (0.1-0.8); Absolute Neutrophil Count 4.58 10^3/uL (1.2-6.7); Basophils % 1.1 %; Eosinophils % 1.9 %; HCT 46.6 % (36.0-46.0); HGB 15.3 g/dL (11.2-15.7); Immature Grans % 0.3 %; Lymphocytes % 28.3 %; MCH 32.9 pg (27.0-33.0); MCHC 32.8 % (32.0-36.0); MCV 100 fL (80-95); MPV 10.2 fL (8.0-11.0); Monocytes % 7.1 %; Neutrophils % 61.3 %; Platelet Count 304 10^3/uL (130-400); RBC 4.65 10^6/uL (3.93-5.22); RDW 13.1 % (11.7-14.6); RDW-SD 48.7 fL; WBC 7.46 10^3/uL (4.4-10.8)
[2024-08-19 22:07] LABS: ALT 20 U/L (14-59); AST 16 U/L (15-37); Alkaline Phosphatase 95 U/L (46-116); Anion Gap 8.7 mmol/L (3-11); BUN 18 mg/dL (7-18); Bilirubin, Total 0.46 mg/dL (0.2-1.0); CO2 28.3 mmol/L (21.0-32.0); CREATININE 0.9 mg/dL (0.55-1.02); Calcium 9.3 mg/dL (8.5-10.1); Chloride 106 mmol/L (98-107); Estimated GFR 73.19 (mL/min/1.73m2); Glucose 85 mg/dL (74-106); Magnesium 2.5 mg/dL (1.8-2.4); Potassium 4.3 mmol/L (3.5-5.1); Sodium 143 mmol/L (136-145); TSH (W/Ref FT4) 2.66 uIU/mL (0.36-3.74); Total Protein 7.4 g/dL (6.4-8.2); Vitamin B12 396 pg/mL (193-986)
[2024-08-22 11:08] LABS: Lyme Ab w Rflx to Lyme Confirm Negative (Negative)
[2024-08-23 19:43] LABS: Anaplasma phagocytophilum Negative (Negative); B. miyamotoi PCR Negative (Negative); Babesia divergens/MO-1 Negative (Negative); Babesia duncani Negative (Negative); Babesia microti Negative (Negative); Ehrlichia chaffeensis Negative (Negative); Ehrlichia ewingii/canis Negative (Negative); Ehrlichia muris eauclairensis Negative (Negative)
== END 2024-08-19 15:41 | disposition home or self-care (01) ==
LOC: LBN 15:40
PROVIDERS: PCP Nurse Practitioner Family; Visit Provider Physician Assistant
DX: R53.83 Other fatigue (principal)
CPT/HCPCS: 80053; 87798; 82607; 83735; 84443; 85025; 86618

== ENCOUNTER 2024-08-31 16:23 | Outpatient (CLI) | payer OTHER, SELFPAY ==
--- NOTE | 2024-08-31 06:00 | DI.RAD_ITS ---
Exam(s) XR PAIN CLINIC CERVICAL SP 2V EXAM: XR PAIN CLINIC CERVICAL SP 2V CLINICAL HISTORY: DX: Cervical Spondylosis TECHNIQUE: 2D and realtime digital imaging was performed. CONTRAST MATERIAL: Refer to procedure report. COMPARISON: No exams were available for comparison FINDINGS: Fluoroscopy was provided for Dr. Ballard during the performance of a cervical medial branch block. Ple ase refer to the procedure report for complete details. Ka,r=3.3 mGy IMPRESSION: RADIATION DOSE DELIVERED: 0.0 4050.84 0
[2024-08-31 16:30] VITALS: BP 137/90; PULSE 64; RESP 20; TEMP 36.7; O2SAT 100
[2024-08-31 17:04] VITALS: PULSE 64; RESP 25; O2SAT 96
[2024-08-31 17:05] VITALS: BP 148/106; PULSE 63; PULSE 66; RESP 26; O2SAT 94
[2024-08-31 17:10] VITALS: PULSE 62; RESP 21; O2SAT 95
[2024-08-31 17:16] VITALS: BP 133/63; PULSE 57; PULSE 61; RESP 21; O2SAT 96
[2024-08-31 17:20] VITALS: PULSE 60; RESP 21; O2SAT 96
--- NOTE | 2024-08-31 17:23 | PDOC.PAIN ---
Date of service: 08/31/24 Time of Service: 17:23 Pain Managment Procedure Note Procedure Note Procedure Note: PROCEDURE NOTE LEFT SIDED CERVICAL MEDIAL BRANCH BLOCKS Date of Service: August 31, 2024 Patient: Negrita Cope Provider: Abdiel Ballard DO, MPH Negritabelem Cope has been [facility] for cervical medial branch blocks. Pre-operative diagnosis: Cervical Spondylosis without Myelopathy ICD-10 M47.812 Post-operative diagnosis: Same Pre-procedure pain: VAS= 7/10 COMMENTS: I previously evaluated her in the clinic. She does have a C5-C6 ACDF. Negrita?was interviewed and the medical records were reviewed. There were no medical, pharmacologic, radiographic or other structural contraindications to attempting fluoroscopically guided local anesthetic cervical medial branch blocks. Risks and potential side effects were discussed. I also discussed the potential benefit(s) of the procedure with Negrita, and voiced concerns were addressed. After Negrita was completely informed about the procedure, the printed consent form was signed. A standard time-out procedure was performed. Negrita was placed in the lateral decubitus position on the fluoroscopy table with the effected side up. Automated blood pressure cuff and pulse oximeter were applied. The skin entry points for approaching the anatomic target points of the segmental medial branches of Left C2,C3,C4,and C5 were identified with fluoroscopy and marked. The skin at the target site area was thoroughly prepared with Chlorhexadine. The skin was then draped. Next, a 25 gauge 3.5 spinal needle was placed under fluoroscopic guidance down on to the target point (the articular pillar) for each respective segmental medial branch. Position was confirmed in A/P and lateral views. Aspiration revealed no blood or clear fluid. Next, 0.25ml of omnipaque 240 was injected at each level. No contrast following a vascular or neural pattern was visualized under continuous fluoroscopy. Next, 0.25 ml of preservative-free 0.5% bupivicaine was injected at each level. (49 mls of Omnipaque was wasted) There was no unusual discomfort expressed by Negrita. The needles were withdrawn without difficulty. Negrita was observed and was without hemodynamic, neurologic, or allergic reactions.? Fluoroscopic images were digitally archived. Negrita's vital signs were stable throughout the procedure and were as recorded in the docflowsheet by the nursing staff. Provacative testing using the Modified Sneed's facet loading test Left side Directly before the block VAS (0-10) = 7/10 Five minutes after the block VAS (0-10) = 1/10 Percentage relief obtained with this diagnostic block 90% Any improved physical functioning directly after the blocks? Able to move her neck with ease Follow up plans and appointments were discussed with Negrita. Negrita was instructed to keep careful note of how the usual pain was modified by these injections. Specifically, to keep a pain diary for the next 4 hours using a numeric pain scale of 0-10 and report these results. Post procedure instruction was given as documented in the nursing documentation and having met discharge criteria, the patient was [facility] the [facility]. Based on the medial branches blocked today, if Negrita has adequate relief and we are able to proceed to radiofrequency ablation, the treatment should result in the denervation of the Left C2-C3 (TON), C3-C4 and C4-C5 facet joints. We would expect to denervate a total of 3 facets during the radiofrequency ablation. COMMENTS: No apparent complications. Post-procedure pain: VAS= 1/10 Negrita will call back with 0-4 hour post-procedure pain scores. I personally performed the entire procedure. ABDIEL BALLARD DO, MPH ABPM&R-subspecialty board certification in Pain Medicine [facility]
[2024-08-31] MEDS: Omnipaque 240 MG/ML 50 ML BTL IJ (17:27)
[2024-08-31] MEDS: Nerve Block Tray 1 EACH MC (17:28)
[2024-08-31] MEDS: Bupivacaine 0.5% Pres-Free 10 ML VIAL IJ (17:28)
== END 2024-08-31 16:24 | disposition home or self-care (01) ==
LOC: PC 16:23
PROVIDERS: PCP Nurse Practitioner Family; Visit Provider Preventive Medicine Occupational Medicine
DX: M47.812 Spondylosis without myelopathy or radiculopathy, cervical region (principal)
CPT/HCPCS: 64490; 64491; 64492; 72040; J0665; Q9967

== ENCOUNTER 2024-09-21 16:23 | Outpatient (CLI) | payer OTHER, SELFPAY ==
[2024-09-21 16:29] VITALS: BP 153/67; PULSE 47; RESP 20; TEMP 36.7; O2SAT 100
[2024-09-21 16:49] VITALS: O2SAT 96
[2024-09-21 16:50] VITALS: PULSE 60; RESP 25; O2SAT 96
[2024-09-21 17:00] VITALS: PULSE 59; RESP 22; O2SAT 98
--- NOTE | 2024-09-21 17:01 | PDOC.PAIN_ITS ---
Date of service: 09/21/24 Time of Service: 17:01 Pain Managment Procedure Note Procedure Note Procedure Note: PROCEDURE NOTE LEFT SIDED CERVICAL MEDIAL BRANCH BLOCKS #2 Date of Service: September 21, 2024 Patient: Negrita Cope Provider: Abdiel Ballard DO, MPH Negrita Cope has been referred to the [facility] for cervical medial branch blocks. Pre-operative diagnosis: Cervical Spondylosis without Myelopathy ICD-10 M47.812 Post-operative diagnosis: Same Pre-procedure pain: VAS= 3/10 COMMENTS: She did very well with the first CMBB Negrita?was interviewed and the medical records were reviewed. There were no medical, pharmacologic, radiographic or other structural contraindications to attempting fluoroscopically guided local anesthetic cervical medial branch blocks. Risks and potential side effects were discussed. I also discussed the potential benefit(s) of the procedure with Negrita, and voiced concerns were addressed. After Negrita was completely informed about the procedure, the printed consent form was signed. A standard time-out procedure was performed. Negrita was placed in the lateral decubitus position on the fluoroscopy table with the effected side up. Automated blood pressure cuff and pulse oximeter were applied. The skin entry points for approaching the anatomic target points of the segmental medial branches of Left C2,C3,C4,and C5 were identified with fluoroscopy and marked. The skin at the target site area was thoroughly prepared with Chlorhexadine. The skin was then draped. Next, a 25 gauge 3.5 spinal needle was placed under fluoroscopic guidance down on to the target point (the articular pillar) for each respective segmental medial branch. Position was confirmed in A/P and lateral views. Aspiration revealed no blood or clear fluid. Next, 0.25ml of omnipaque 240 was injected at each level. No contrast following a vascular or neural pattern was visualized under continuous fluoroscopy. Next, 0.25 ml of preservative-free 0.5% bupivicaine was injected at each level. (49 mls of Omnipaque was wasted) There was no unusual discomfort expressed by Negrita. The needles were withdrawn without difficulty. Negrita was observed and was without hemodynamic, neurologic, or allergic reactions.? Fluoroscopic images were digitally archived. Negrita's vital signs were stable throughout the procedure and were as recorded in the docflowsheet by the nursing staff. Provacative testing using the Modified Sneed's facet loading test Left side Directly before the block VAS (0-10) = 3/10 Five minutes after the block VAS (0-10) = []/10 Percentage relief obtained with this diagnostic block []% Any improved physical functioning directly after the blocks? Able to move her neck with ease Follow up plans and appointments were discussed with Negrita. Negrita was instructed to keep careful note of how the usual pain was modified by these injections. Specifically, to keep a pain diary for the next 4 hours using a numeric pain scale of 0-10 and report these results. Post procedure instruction was given as documented in the nursing documentation and having met discharge criteria, the patient was [facility] from the [facility]. Based on the medial branches blocked today, if Negrita has adequate relief and we are able to proceed to radiofrequency ablation, the treatment should result in the denervation of the Left C2-C3, C3-C4 and C4-C5 facet joints (this included the Third Occipital Nerve (TON)). We would expect to denervate a total of 3 facets during the radiofrequency ablation. COMMENTS: No apparent complications. Post-procedure pain: VAS= 2/10 Negrita will call back with 0-4 hour post-procedure pain scores. I personally performed the entire procedure. ABDIEL BALLARD DO, MPH ABPM&R-subspecialty board certification in Pain Medicine [facility]
[2024-09-21] MEDS: Omnipaque 240 MG/ML 50 ML BTL IJ (17:06)
[2024-09-21] MEDS: Nerve Block Tray 1 EACH MC (17:07)
[2024-09-21] MEDS: Bupivacaine 0.5% Pres-Free 10 ML VIAL IJ (17:07)
--- NOTE | 2024-09-21 17:12 | DI.RAD_ITS ---
Exam(s) XR PAIN CLINIC CERVICAL SP 2V EXAM: XR PAIN CLINIC CERVICAL SP 2V CLINICAL HISTORY: DX: Cervical Spondylosis. TECHNIQUE: Fluoroscopy was provided for the referring physician for guidance with performing pain cl inic injection procedure. COMPARISON: No exams were available for comparison FINDINGS: Please see procedure note for details. Fluoro time: 39.6 seconds RADIATION DOSE DELIVERED: Elir=5.21 mGy
== END 2024-09-21 16:24 | disposition home or self-care (01) ==
LOC: PC 16:23
PROVIDERS: PCP Nurse Practitioner Family; Visit Provider Preventive Medicine Occupational Medicine
DX: M47.812 Spondylosis without myelopathy or radiculopathy, cervical region (principal)
CPT/HCPCS: 64490; 64491; 64492; 72040; J0665; Q9967

== ENCOUNTER 2024-12-01 12:55 | Outpatient (CLI) | payer OTHER, SELFPAY ==
[2024-12-01] VITALS (13 sets, daily range): BP systolic 117–159; BP diastolic 59–92; PULSE 57–67; RESP 15–21; TEMP 36.7; O2SAT 99–100
--- NOTE | 2024-12-01 06:00 | DI.RAD_ITS ---
Exam(s) XR PAIN CLINIC CERVICAL SP 2V EXAM: XR PAIN CLINIC CERVICAL SP 2V CLINICAL HISTORY: DX: Cervical Radiculopathy TECHNIQUE: 2D and realtime digital imaging was performed. CONTRAST MATERIAL: Refer to procedure report. COMPARISON: No exams were available for comparison FINDINGS: Fluoroscopy was provided for Dr. Ballard during the performance of a cervical radiofrequency ablation. Please refer to the procedure report for complete details. Ka,r=2.9 mGy IMPRESSION: RADIATION DOSE DELIVERED: 0.0 0.0 0
[2024-12-01] MEDS: Midazolam 2 MG/2 ML VIAL IVP ×3 (13:51→14:05)
[2024-12-01] MEDS: Bupivacaine 0.5% Pres-Free 10 ML VIAL IJ (14:18)
[2024-12-01] MEDS: Dexamethasone Sod. Phos./Pres-Free 10 MG/ML VIAL IJ (14:19)
[2024-12-01] MEDS: Lidocaine 2% Pres-Free 5 ML VIAL IJ (14:19)
[2024-12-01] MEDS: Nerve Block Tray 1 EACH MC (14:20)
--- NOTE | 2024-12-01 14:20 | PDOC.PAIN_ITS ---
Date of service: 12/01/24 Time of Service: 14:20 Pain Managment Procedure Note Procedure Note Procedure Note: PROCEDURE NOTE LEFT Cervical Radiofrequency Ablation Date of Service: December 01, 2024 Patient:? Negrita Cope? Provider:? Abdiel Ballard DO, MPH Negrita Cope has been [facility] to the [facility] for LEFT Cervical Radiofrequency Ablation with the [employer] Machine.? Pre Operative Diagnosis: Cervical Spondylosis without Myelopathy ICD-10 M47.812 Post Operative Diagnosis: Same Pre procedure pain; VAS= 7/10 Comments: Successful CMBBs X 2 PROCEDURE: 1. Left C2-C3 facet joint radiofrequency denervation 2. Left C3-C4 facet joint radiofrequency denervation 3. Left C4-C5 facet joint radiofrequency denervation [place] interviewed and the medical record was reviewed.? There were no medical, pharmacologic, radiographic or other structural contraindications to attempting fluoroscopically guided LEFT Cervical Radiofrequency Ablation.?Risks and expected side effects as well as potential benefit of the procedure were reviewed with Negrita, and the patient's voiced concerns were addressed.? The printed consent form was signed.? Standard time-out procedure was performed. Negrita was brought to the procedure suite and placed on the exam table in a comfortable lateral recumbent position. A grounding pad was placed on the left abdomen. The place for the needle placement was obtained by manual palpation as well as radiographic confirmation. The sterile field was prepped by chlorhexidine and sterile drapes. Local anesthesia, both superficial and deep was provided by local infiltration of 3 ml Lidocaine 1%. Using fluoroscopic guidance, A 17g 50 mm radiofrequency introducer needle with a 2 mm active tip was placed overlying the left C2 cervical vertebra from the lateral approach and was advanced until bony contact was felt with the articular pillar. Attempted aspiration revealed no blood or cerebrospinal fluid. Motor testing was then performed with 2.0 volts and no upper extremity motor stimulation was observed. 1 ml of 2% Lidocaine was injected through the RF needle. A radiofrequency lesion of the Left medial branch of C2 (TON) was then performed at 80 degrees Celsius for 2 minutes and 30 seconds. There was no unusual discomfort expressed by Negrita. The needles were withdrawn without difficulty. Negrita was observed and was without hemodynamic, neurologic, or allergic reactions. Fluoroscopic images were digitally archived. The same procedure was repeated for Left C3, C5 and C5 medial branches. POST PROCEDURE EVALUATION: IMPRESSION: 1. Medication given is documented in the MAR 2. Follow up plan: Negrita to contact [facility] as needed. This procedure may be repeated if the patient achieves at least 50% improvement in pain and/or function for at least 6 months. 3. Estimated Blood Loss: <5ml 4. Fluoroscopy time: Documented in the EMR Follow up plans and appointments were discussed with Negrita. Post procedure i nstruction was given as documented in nursing documentation and having met discharge criteria, Negrita was discharged from the [facility]. This advanced procedure uses cooled radiofrequency energy to safely target the sensory nerves responsible for sending pain signals.1 A radiofrequency generator transmits a small current of Radiofrequency energy through an insulated electrode, or probe, placed within tissue. Ionic heating, produced by the friction of charged molecules, thermally deactivates the nerves responsible for sending pain signals to the brain. Radiofrequency energy heats and cools the tissue at the site of pain. Unlike other Radiofrequency procedures, Coolief circulates water through the device while heating nervous tissue to create a larger treatment area, incr easing the opportunity to help with pain. This combination targets the pain- transmitting nerves without excessive heating, leading to pain relief. COMMENTS: No apparent complications. Post-procedure pain: VAS= 6/10. I personally performed this entire procedure. ABDIEL BALLARD DO, MPH ABPM&R - Subspecialty board certification in Pain Medicine [facility]
== END 2024-12-01 12:56 | disposition home or self-care (01) ==
LOC: PC 12:55
PROVIDERS: PCP Nurse Practitioner Family; Visit Provider Preventive Medicine Occupational Medicine
DX: M47.812 Spondylosis without myelopathy or radiculopathy, cervical region (principal)
CPT/HCPCS: 64633; 64634; 72040; J0665; J1100; J2250

== ENCOUNTER 2025-01-30 08:55 | Outpatient (CLI) | payer OTHER, SELFPAY ==
--- NOTE | 2025-01-30 08:13 | DI.RAD_ITS ---
Exam(s) XR KNEE LT 3V AP,LAT,TREMAYNE EXAM: XR KNEE LT 3V AP,LAT,TREMAYNE CLINICAL HISTORY: F/U L KNEE. TECHNIQUE: 2D digital imaging was performed. Three views. COMPARISON: CR XR KNEE RT 3V AP,LAT,TREMAYNE from 06/14/2024 FINDINGS: BONES: No acute fracture is present. No bony destructive lesion is seen. JOINTS: Minimal spurring at the articular aspect of the patella. The joint spaces are maintained. T he knee is normally aligned. No joint effusion is seen. SOFT TISSUE: Normal. IMPRESSION: Minimal degenerative changes. DATA REPOSITORY: RADIATION DOSE DELIVERED:
== END 2025-01-30 08:56 | disposition home or self-care (01) ==
LOC: DIORS 08:57
PROVIDERS: PCP Nurse Practitioner Family; Referring Provider Nurse Practitioner Family; Visit Provider Student in an Organized Health Care Education/Training Program
DX: S82.092D Other fracture of left patella, subsequent encounter for closed fracture with routine healing (principal); X58.XXXD Exposure to other specified factors, subsequent encounter
CPT/HCPCS: 73562

== ENCOUNTER 2025-05-10 11:08 | Outpatient (CLI) | payer OTHER, SELFPAY ==
--- NOTE | 2025-05-10 10:45 | DI.RAD_ITS ---
Exam(s) XR CERVICAL SPINE COMP 4-5V EXAM: XR CERVICAL SPINE COMP 4-5V CLINICAL HISTORY: evaluate pathology,cervical pain,m54.2. TECHNIQUE: 2D digital imaging was performed. Five views were performed. COMPARISON: CR,XR XR CERVICAL SPINE COMP 4-5V from 01/21/2023 FINDINGS: BONES: No fracture or destructive lesion. Vertebral bodies are unremarkable. Anterior fusion hardware again noted at C5-6. facet degenerative changes. DISKS: Moderate narrowing and endplate osteophyte formation at C4-5. Mild bilateral neural foraminal narrowing at this level. The remaining intervertebral disc spaces are maintained. ALIGNMENT: Cervical spinal alignment is within normal limits. The odontoid and atlantoaxial articulations are normal. SOFT TISSUE: Normal. The lung apices are clear. Surgical clips noted near the upper thoracic spine. IMPRESSION: Stable appearance of postsurgical changes at C5-6. Stable moderate degenerative changes at C4-5. DATA REPOSITORY: RADIATION DOSE DELIVERED:
--- NOTE | 2025-05-10 10:45 | DI.RAD_ITS ---
Exam(s) XR SACRUM COCCYX XR LUMBAR SPINE COMPLETE EXAM: XR LUMBAR SPINE COMPLETE CLINICAL HISTORY: evaluate pathology,lumbar pain,m54.50. TECHNIQUE: 2D digital imaging was performed. Five views of the lumbar spine. Three views of the sacrum and coccyx. COMPARISON: CR XR SACRUM COCCYX from 05/10/2025 FINDINGS: The SI joints show minimal degenerative changes. No erosions. BONES: No fracture or destructive lesion. Vertebral body heights are maintained. Mild facet hypertrophy identified at L4-5 and L5-S1.. DISKS: Moderate narrowing of the L4-5 disc space with endplate osteophytes. The remaining intervertebral disc spaces are maintained. ALIGNMENT: Lumbar spinal alignment is within normal limits. SOFT TISSUE: Normal. IMPRESSION: Unremarkable radiographs of the sacrum and coccyx Degenerative disc changes at L4-5. DATA REPOSITORY: RADIATION DOSE DELIVERED:
== END 2025-05-10 11:28 ==
LOC: DI 11:08
PROVIDERS: PCP Nurse Practitioner Family; Visit Provider Nurse Practitioner Family
DX: M51.360 Other intervertebral disc degeneration, lumbar region with discogenic back pain only; M53.3 Sacrococcygeal disorders, not elsewhere classified
CPT/HCPCS: 72050; 72110; 72220

== ENCOUNTER 2025-07-26 03:22 | Outpatient (CLI) | payer BC, SELFPAY ==
--- NOTE | 2025-07-26 05:00 | DI.MAMMO_ITS ---
Exam(s) MAMMO SCREENING EXAM: MAMMO SCREENING CLINICAL HISTORY: screening,z12.39 TECHNIQUE: Mammograms were interpreted according to the usual protocol including computer analysis with CAD system, tomosynthesis and C-view imaging. COMPARISON: 2015 through 2023 FINDINGS: The breasts are composed of scattered fibroglandular densities, Breast Density category B. No suspicious masses or suspicious microcalcifications are seen. No skin thickening or abnormal axillary lymph nodes are seen. There has been no significant change from prior exams. IMPRESSION: BI-RADS Category 1, Negative mammogram Yearly screening mammography is recommended. Breast Density - Category B - There are scattered areas of fibroglandular density. Breast density Category C or D implies that the patient has dense breast tissue. Dense breast tissue can make it harder to find cancer on a mammogram. Dense breast tissue is also associated with an increased risk of breast cancer. This information about the result of the mammogram report was provided to the patient to raise their awareness. Use this report when you speak with the patient about their risks for breast cancer, which includes their family history. At that time, you may recommend additional screening tests (Ultrasound or MRI) as these tests may add significant information. A negative radiographic report should not delay biopsy if a dominant or clinically suspicious mass is present. Up to ten percent of cancers are not identified on mammography. A negative report may reinforce clinical impression. Adenosis and dense breasts may obscure an underlying neoplasm. False positive reports average 6 to 10%. Patient will receive a letter notifying them of these results.
== END 2025-07-26 03:42 ==
LOC: DI 03:22
PROVIDERS: PCP Nurse Practitioner Family; Visit Provider Nurse Practitioner Family
DX: Z12.31 Encounter for screening mammogram for malignant neoplasm of breast (principal); R92.323 Mammographic fibroglandular density, bilateral breasts
CPT/HCPCS: 77063; 77067

== ENCOUNTER → 2025-10-11 01:42 | Outpatient (CLI) | payer OTHER, SELFPAY ==
--- NOTE | 2025-10-11 09:32 | DI.MRI_ITS ---
Exam(s) MR LUMBAR SPINE WO EXAM: MR LUMBAR SPINE WO CLINICAL HISTORY: worsening back pain and neuropathy, no relief w PT,LUMBAR SPONDYLOSIS. TECHNIQUE: Multiplanar multisequence MRI of the Lumbar spine was performed. COMPARISON: MR MR LUMBAR SPINE WO from 11/27/2021 MR MR LUMBAR SPINE WO from 04/14/2024 CR XR LUMBAR SPINE COMPLETE from 05/10/2025 FINDINGS: Bones: The last intervertebral disc space is designated the L5/S1 level for the numbering purpose of this examination. The vertebral body heights are well maintained. Alignment is satisfactory. Degenerative endplate signal changes are seen particularly at L4-L5. Cord: It is of normal size and signal intensity. T12-L1: No disc herniations or bulges are present. No central spinal canal or neural foraminal stenosis. L1-2: No disc herniations or bulges are present. No central spinal canal or neural foraminal stenosis. L2-3: No disc herniations or bulges are present. No central spinal canal or neural foraminal stenosis. L3-4: No disc herniations or bulges are present. No central spinal canal or neural foraminal stenosis. L4-5: There is a diffuse disc bulge. Facet arthropathy and hypertrophy of the ligamentum flavum is present. The findings result in mild central spinal canal and mild bilateral neural foraminal stenosis. This is unchanged compared to the prior examination. L5-S1: No disc herniations or bulges are present. There are degenerative changes of the facets. No central spinal canal or neural foraminal stenosis. Soft tissues: The visualized SI joints and sacrum are well maintained. The paraspinal soft tissues are unremarkable. IMPRESSION: Stable degenerative changes at L4-L5 resulting in mild central spinal canal and mild bilateral neural foraminal stenosis. DATA REPOSITORY:
--- NOTE | 2025-10-11 09:32 | DI.MRI_ITS ---
Exam(s) MR CERVICAL SPINE WO EXAM: MR CERVICAL SPINE WO CLINICAL HISTORY: worsening pain, no relief with PT,CERVICAL SPONDYLOSIS,DJD C SPINE,M47.812 TECHNIQUE: Multiplanar multisequence MRI of the cervical spine was performed without intravenous contrast. COMPARISON: MR MR CERVICAL SPINE WO from 04/14/2024 CR XR CERVICAL SPINE COMP 4-5V from 05/10/2025 FINDINGS: BONES: Vertebral body heights are maintained. There is anterior cervical disc fusion again seen at C5-C6. Alignment is normal. Degenerative endplate signal changes are seen at C4-C5. CERVICAL CORD: Craniovertebral junction is unremarkable. The cervical cord is normal size and signal intensity. SOFT TISSUES: Unremarkable. C2-3: No disc herniation or bulge is identified. No significant central spinal canal or neural foraminal stenosis. C3-4: No disc herniation or bulge is identified. No significant central spinal canal or neural foraminal stenosis. C4-5: There is prominence of the osteophyte disc complex and degenerative changes seen at the uncovertebral joints bilaterally. There is no significant central spinal canal stenosis. There is again seen mild bilateral neural foraminal stenosis. C5-6: No disc herniation or bulge is identified. No significant central spinal canal or neural foraminal stenosis. C6-7: No disc herniation or bulge is identified. No significant central spinal canal or neural foraminal stenosis. C7-T1: No disc herniation or bulge is identified. No significant central spinal canal or neural foraminal stenosis. IMPRESSION: Stable degenerative changes at C4-5 resulting in mild bilateral neural foraminal stenosis. DATA REPOSITORY:
== END ==
PROVIDERS: PCP Nurse Practitioner Family; Visit Provider Nurse Practitioner Family
DX: M47.817 Spondylosis without myelopathy or radiculopathy, lumbosacral region (principal); M48.02 Spinal stenosis, cervical region
CPT/HCPCS: 72141; 72148